=== PATIENT | male | born 1935 | race Caucasian/White ===

== ENCOUNTER 2025-02-10 19:00 | Inpatient (IN) | payer OTHER, SELFPAY ==
[2025-02-10] VITALS (11 sets, daily range): BP systolic 103–130; BP diastolic 63–98; BMI 24.8; BMI 25.9
[2025-02-10 14:01] LABS: % Basophils 0.1 % (0-2); % Eosinophils 2.5 % (0-6); % Immature Granulocytes 0.6 % (0-0.5); % Lymphocytes 9.4 % (20.5-51.1); % Monocytes 9.2 % (1.7-9.3); % Neutrophils 78.2 % (42.2-75.2); Absolute Eosinophils 0.3 10^3/uL (0-0.7); Absolute Immature Granulocytes 0.1 10^3/uL (0-0.05); Absolute Lymphocytes 1.1 10^3/uL (1.2-3.4); Absolute Monocytes 1.1 10^3/uL (0.1-0.6); Absolute Neutrophils 9.1 10^3/uL (1.4-6.5); Hematocrit 48.6 % (39.0-52.0); Hemoglobin 16.1 g/dL (13.0-18.0); Mean Corp Hgb Conc. 33.1 g/dL (33.0-37.0); Mean Corpuscular Hgb 32.2 pg (27.0-31.0); Mean Corpuscular Volume 97.2 fL (80.0-94.0); Nucleated Red Blood Cells % 0 % (-); Platelet Count 147 10^3/uL (130-400); Red Cell Dist. Width 13.9 % (11.5-14.5); White Blood Cell Count 11.7 10^3/uL (4.8-10.8)
[2025-02-10 14:09] LABS: Erythrocyte Sed Rate 3 mm/hour (0-20)
--- NOTE | 2025-02-10 14:18 | ED.GENMED ---
History of Present Illness
<Topher Logan PA-C - Last Filed: 02/10/25 15:57>
General
Chief Complaint: Change in Mental Status
Source: patient and family
Time Seen by Provider: 02/10/25 13:31
History of Present Illness
History of Present Illness:
89-year-old male with past medical history of previous SD, COPD presenting to the emergency department with family who reports that about 30 minutes prior to arrival to the ER patient developed sudden onset left-sided headache/neck pain which
radiated down into the left shoulder area and accompanied with blurred vision with patient describing it as if the vision in front of him was very distorted with the visual symptoms lasting about 15 minutes and then resolving but then starting up
again and lasting for another 15 minutes. At time of my exam patient only notes the left-sided headache which is also now moderately improved, no pain within the shoulder, no chest pain or any other concerns acutely. Family did notice that
yesterday patient started having some left upper extremity tremors which is now in the bilateral lower extremities. Lower extremities unaffected. No fevers, chills, rigors. No history of any neurologic complications. No other concerns presently.
Despite patient having history of acute SD he reports that he is not on any antiplatelet or anticoagulant medications.
Past History
<Topher Logan PA-C - Last Filed: 02/10/25 15:57>
Past History
ED Past Medical History: CAD, COPD and Other (GI BLEED)
ED Past Surgical History: Bowel resection, Cardiac and Orthopedic
Social History
Tobacco: Former smoker
Alcohol: Occasional
Drug: None
Personal:
Living: with family
Review of Systems
<Topher Logan PA-C - Last Filed: 02/10/25 15:57>
Review of Systems
All Other Systems: ROS reviewed and negative except as documented in HPI and ROS
Phy Exam
<Topher Logan PA-C - Last Filed: 02/10/25 15:57>
Physical Exam
Physical Exam:
GENERAL: Alert , in no apparent distress
HEAD: Normocephalic atraumatic
EYE: Clear conjunctiva, pupils equal and reactive, 3 mm bilateral, EOMI, no nystagmus
NECK: Supple, no significant adenopathy., No carotid bruit
ENT: o/p clr, mmm. Tongue midline, no fasciculations
CARDIAC: Regular rate and rhythm .
LUNGS: Clear breath sounds bilaterally, no acute respiratory distress, no wheezes/rales/rhonchi
ABDOMEN: Soft, without focal tenderness, no r/g, no cvat
NEUROLOGICAL: Alert and oriented, no focal neuro deficits, no dysmetria, no dysarthria or aphasia, intermittent upper extremity twitching/tremor noted which is increased with arms extended
SKIN: Warm and dry, skin intact.
MUSCULOSKELETAL: well perfused.
PSYCH: Normal and appropriate interaction.
Scores
<Topher Logan PA-C - Last Filed: 02/10/25 15:57>
Heart Failure Risk
Heart Failure Risk Score: Not Applicable
Heart Score for Chest Pain Patients
STEMI patient?: Not applicable
Withdrawal Assessment of Alcohol
Withdrawal Assessment Completed?: Not applicable
Course
<JULIAN Lucia Last Filed: 02/10/25 15:57>
Orders/Labs/Results
Orders:
Orders
02/10/25 13:30
CT Head & Neck Angio W/wo IV Urgent
Comment:
Reason For Exam: sudden onset headache with neck pain
02/10/25 13:32
Electrocardiogram (*1) Urgent
Reason for Study: TIA/Stroke
EKG- Treatment ONCE
02/10/25 13:52
CRP [C-Reactive Protein] Urgent
Complete Blood Count/With Diff Urgent
Comprehensive Metabolic Panel Urgent
ESR [Erythrocyte Sed Rate] Urgent
Troponin I Urgent
02/10/25 13:58
Lorazepam [Ativan] 0.5 mg IV NOW STA
02/10/25 17:22
Aspirin 325 mg PO NOW STA
Clopidogrel Bisulfate [Plavix] 300 mg PO NOW STA
Abnormal Lab Results
02/10/25
13:52
WBC 11.7 H 10^3/uL
(4.8-10.8)
MCV 97.2 H fL
(80.0-94.0)
MCH 32.2 H pg
(27.0-31.0)
Abs Immat Gran (auto) 0.1 H 10^3/uL
(0-0.05)
Absolute Neuts (auto) 9.1 H 10^3/uL
(1.4-6.5)
Absolute Lymphs (auto) 1.1 L 10^3/uL
(1.2-3.4)
Absolute Monos (auto) 1.1 H 10^3/uL
(0.1-0.6)
Immature Gran % 0.6 H %
(0-0.5)
Neutrophils % 78.2 H %
(42.2-75.2)
Lymphocytes % 9.4 L %
(20.5-51.1)
Glucose 170 H mg/dl
(70-99)
C-Reactive Protein 154.80 H mg/L
(0.0-10.00)
02/10/25 13:52
02/10/25 13:52
Vital Signs
Initial and Last Documented VS:
Initial Vital Signs
Temp Pulse Resp BP Pulse Ox
98.3 F 89 18 123/78 97
02/10/25 13:27 02/10/25 13:27 02/10/25 13:27 02/10/25 13:27 02/10/25 13:27
Last Documented Vital Signs
Temp Pulse Resp BP Pulse Ox
98.3 F 68 26 111/98 98
02/10/25 13:27 02/10/25 17:15 02/10/25 17:15 02/10/25 17:00 02/10/25 14:30
<Jermainekrista Cook Kierra, DO - Last Filed: 02/10/25 15:35>
Orders/Labs/Results
Orders:
Orders
02/10/25 13:30
CT Head & Neck Angio W/wo IV Urgent
Comment:
Reason For Exam: sudden onset headache with neck pain
02/10/25 13:32
Electrocardiogram (*1) Urgent
Reason for Study: TIA/Stroke
EKG- Treatment ONCE
02/10/25 13:52
CRP [C-Reactive Protein] Urgent
Complete Blood Count/With Diff Urgent
Comprehensive Metabolic Panel Urgent
ESR [Erythrocyte Sed Rate] Urgent
Troponin I Urgent
02/10/25 13:58
Lorazepam [Ativan] 0.5 mg IV NOW STA
02/10/25 17:22
Aspirin 325 mg PO NOW STA
Clopidogrel Bisulfate [Plavix] 300 mg PO NOW STA
Abnormal Lab Results
02/10/25
13:52
WBC 11.7 H 10^3/uL
(4.8-10.8)
MCV 97.2 H fL
(80.0-94.0)
MCH 32.2 H pg
(27.0-31.0)
Abs Immat Gran (auto) 0.1 H 10^3/uL
(0-0.05)
Absolute Neuts (auto) 9.1 H 10^3/uL
(1.4-6.5)
Absolute Lymphs (auto) 1.1 L 10^3/uL
(1.2-3.4)
Absolute Monos (auto) 1.1 H 10^3/uL
(0.1-0.6)
Immature Gran % 0.6 H %
(0-0.5)
Neutrophils % 78.2 H %
(42.2-75.2)
Lymphocytes % 9.4 L %
(20.5-51.1)
Glucose 170 H mg/dl
(70-99)
C-Reactive Protein 154.80 H mg/L
(0.0-10.00)
02/10/25 13:52
02/10/25 13:52
Vital Signs
Initial and Last Documented VS:
Initial Vital Signs
Temp Pulse Resp BP Pulse Ox
98.3 F 89 18 123/78 97
02/10/25 13:27 02/10/25 13:27 02/10/25 13:27 02/10/25 13:27 02/10/25 13:27
Last Documented Vital Signs
Temp Pulse Resp BP Pulse Ox
98.3 F 68 26 111/98 98
02/10/25 13:27 02/10/25 17:15 02/10/25 17:15 02/10/25 17:00 02/10/25 14:30
<Antonio Vargas PA-C - Last Filed: 02/10/25 17:24>
Orders/Labs/Results
Orders:
Orders
02/10/25 13:30
CT Head & Neck Angio W/wo IV Urgent
Comment:
Reason For Exam: sudden onset headache with neck pain
02/10/25 13:32
Electrocardiogram (*1) Urgent
Reason for Study: TIA/Stroke
EKG- Treatment ONCE
02/10/25 13:52
CRP [C-Reactive Protein] Urgent
Complete Blood Count/With Diff Urgent
Comprehensive Metabolic Panel Urgent
ESR [Erythrocyte Sed Rate] Urgent
Troponin I Urgent
02/10/25 13:58
Lorazepam [Ativan] 0.5 mg IV NOW STA
02/10/25 17:22
Aspirin 325 mg PO NOW STA
Clopidogrel Bisulfate [Plavix] 300 mg PO NOW STA
Abnormal Lab Results
02/10/25
13:52
WBC 11.7 H 10^3/uL
(4.8-10.8)
MCV 97.2 H fL
(80.0-94.0)
MCH 32.2 H pg
(27.0-31.0)
Abs Immat Gran (auto) 0.1 H 10^3/uL
(0-0.05)
Absolute Neuts (auto) 9.1 H 10^3/uL
(1.4-6.5)
Absolute Lymphs (auto) 1.1 L 10^3/uL
(1.2-3.4)
Absolute Monos (auto) 1.1 H 10^3/uL
(0.1-0.6)
Immature Gran % 0.6 H %
(0-0.5)
Neutrophils % 78.2 H %
(42.2-75.2)
Lymphocytes % 9.4 L %
(20.5-51.1)
Glucose 170 H mg/dl
(70-99)
C-Reactive Protein 154.80 H mg/L
(0.0-10.00)
02/10/25 13:52
02/10/25 13:52
Vital Signs
Initial and Last Documented VS:
Initial Vital Signs
Temp Pulse Resp BP Pulse Ox
98.3 F 89 18 123/78 97
02/10/25 13:27 02/10/25 13:27 02/10/25 13:27 02/10/25 13:27 02/10/25 13:27
Last Documented Vital Signs
Temp Pulse Resp BP Pulse Ox
98.3 F 68 26 111/98 98
03/16/25 13:27 02/10/25 17:15 02/10/25 17:15 02/10/25 17:00 02/10/25 14:30
<Topher Logan PA-C - Last Filed: 02/10/25 15:57>
MDM/Problems Addressed
Differential Diagnosis Includes:
Intracranial bleeding, dissection, aneurysm, atypical migraine, malignancy, atypical ACS presentation
MDM/Problems Addressed:
89-year-old male presenting to the ER for evaluation of sudden onset headache, neck pain and visual disturbance. Symptoms seem to be improving at this time. Patient does have a tremor to the bilateral upper extremities which was noticed yesterday
which continues today. Worse with arms extended. Will check stat CTA of the head and neck and a noncontrast head CT. Ativan ordered for tremors. Disposition pending.
Chronic conditions affecting care: CAD
<Topher Logan PA-C - Last Filed: 02/10/25 15:57>
*Pulse Oximetry
Patient hypoxic: no
*EKG
Heart Rate: 85
Rate: normal
Rhythm: sinus
Vermilion: normal axis
Ischemia: no ischemia
*Technical Manager Interpretation
Rate: normal
Rhythm: sinus
Data Reviewed
Review of Other/Old Records Reveals: Labs
Source: patient, records and family
<Antonio Vargas PA-C - Last Filed: 02/10/25 17:24>
*Critical Care Note
Total Time (30-74mins, 75-104mins- exclusive of procedures): Not Applicable
<Antonio Vargas PA-C - Last Filed: 02/10/25 17:24>
Update Note
Update Note:
02/10/2025 1723 PM: Assumed care of patient from Jono Logan PA-C pending neurology consultation. Discussed case with neurology after consultation, concern at this time for a poncho stroke. Recommends admission for MRI and dual antiplatelets, will
order loading dose of aspirin and Plavix
ED Attending Note
<Topher Logan PA-C - Last Filed: 02/10/25 15:57>
-
Portions of this chart may have been created with voice recognition software.� Occasional wrong word or��sound alike� substitutions may have occurred due to the inherent limitations of voice recognition software.
<Jermaine Lozada DO - Last Filed: 02/10/25 15:35>
ED Attending Note
Patient seen and examined by attending physician: Yes
I performed the substantive portion of visit, reviewed & personally made and approve the management plan that is documented in note by myself or MANDEEP.: Yes
ED Attending Note:
I evaluated the patient at bedside. White count 11.7, chemistries unremarkable except glucose of 170, C-reactive protein is 155
Discharge Plan
Departure
Patient Disposition: Admit
Date of Disposition: 02/10/25
Time of Disposition: 17:23
Admit to: Telemetry
Presentation/result/management discussed w/ accepting MD/DO: Hospitalist
Patient with high blood pressure during this ER visit?: No
Discharge Problem:
Headache, Visual disturbance, Tremor
Prescriptions:
No Action
omeprazole 20 MG capsule,delayed release(DR/EC)
20 mg PO DAILY
Ca-D3-mag zl-kwes-ros-cassandra-bor [Calcium 600-D3 Plus (mag-zinc)] 1 EACH tablet
1 tab PO DAILY
zinc 10 mg Tablet
10 mg PO DAILY
magnesium Tablet
1 tab PO DAILY
Stiolto Respimat 2.5-2.5 mcg/actuation Mist
2 puff INHALATION DAILY
propranolol 20 mg Tablet
20 mg PO BID
propranolol 20 mg Tablet
20 mg PO HS
Interventions
Interventions:
*Risk Screen - Suicide Last Done: 02/10/25 13:29
*General Assessment Last Done: 02/10/25 13:29
*Neglect/Abuse Screening Last Done: 02/10/25 13:29
*ED COVID-19 Vaccine History Last Done: 02/10/25 13:29
ED- Pulmonary Assessment Last Done: 02/10/25 13:54
ED- Neurological Assessment Last Done: 02/10/25 13:57
ED- Cardiac Assessment Last Done: 02/10/25 13:54
Discharge Date and Time
Print Language: MOZAMBICAN
[2025-02-10 14:19] LABS: ALT (SGPT) 22 U/L (0-50); AST (SGOT) 21 U/L (17-59); Albumin 4.4 g/dl (3.5-5.0); Alkaline Phosphatase 68 U/L (38-126); Blood Urea Nitrogen 18 mg/dl (9-20); Calcium 9.1 mg/dl (8.4-10.2); Carbon Dioxide 26 mmol/L (22-30); Chloride 101 mmol/L (98-107); Estimated Creatinine Clearance 54 ml/min; Glucose 170 mg/dl (70-99); Potassium 4.3 mmol/L (3.5-5.1); Sodium 138 mmol/L (135-145); Total Bilirubin 1.3 mg/dl (0.2-1.3); Total Protein 7.1 g/dl (6.3-8.2); eGFR > 60.00
[2025-02-10 14:31] LABS: Troponin I < 0.012 ng/ml
[2025-02-10] MEDS: ATIVAN 0.5 MG IV (15:43)
--- NOTE | 2025-02-10 17:19 | CON.NEURO ---
Addendum entered and electronically signed by Joey Hassan MD 02/10/25 17:39:
NIHSS 3 (eye movement 1, facial droop 1, loss of pin 1) pronator drift no points
Original Note:
Neuro Assessment/Plan
Assessment
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
left trapezius trigger point
Parkinson's disease
Plan
patient within TNK window; spoke with patient symptoms are not disabling, no TNK
Chew ASA 324, start asa 81 daily
Start Lipitor 40
load Plavix 300, start Plavix 75 daily
will need to switch to Pepcid to Protonix (Plavix [id number] interaction)
start Sinemet 25/100 TID for tremor
admit for brain MRI and afib screening
Consultation
Order
Date of Consultation: 02/10/25
Requesting Provider: Topher Logan
Reason for Consult: headache
Subjective/Objective
Subjective Data
Date of Service: February 10, 2025
From ED notes:
89-year-old male with past medical history of previous ID, COPD presenting to the emergency department with family who reports that about 30 minutes prior to arrival to the ER patient developed sudden onset left-sided headache/neck pain which
radiated down into the left shoulder area and accompanied with blurred vision with patient describing it as if the vision in front of him was very distorted with the visual symptoms lasting about 15 minutes and then resolving but then starting up
again and lasting for another 15 minutes. At time of my exam patient only notes the left-sided headache which is also now moderately improved, no pain within the shoulder, no chest pain or any other concerns acutely. Family did notice that
yesterday patient started having some left upper extremity tremors which is now in the bilateral lower extremities. Lower extremities unaffected. No fevers, chills, rigors. No history of any neurologic complications. No other concerns presently.
Despite patient having history of acute ID he reports that he is not on any antiplatelet or anticoagulant medications.
patient reports the above symptoms now resolved. Now having horizontal diplopia; when he looks left the images line up again
Objective Data
Vital Signs
Temp Pulse Resp BP Pulse Ox
36.8 C 68 26 111/98 98
02/10/25 13:27 02/10/25 17:15 02/10/25 17:15 02/10/25 17:00 02/10/25 14:30
Lab Results
02/10/25 13:52
02/10/25 13:52
Sodium 138 mmol/L (135-145) 02/10/25 13:52
Potassium 4.3 mmol/L (3.5-5.1) 02/10/25 13:52
BUN 18 mg/dl (9-20) 02/10/25 13:52
Glucose 170 mg/dl (70-99) H 02/10/25 13:52
Calcium 9.1 mg/dl (8.4-10.2) 02/10/25 13:52
Patient Allergies
No Known Allergies Allergy (Verified 02/10/25 13:29)
Physical Exam
-
AAOx3, speech clear, language intact
VFF, right CN6 palsy, Right facial droop
left pronator drift, left vibratory loss,
right sided loss of pinprick
left trapezius trigger point reproduces the pain
+resting tremor, bradykinesia, cogwheel rigidity
Medications
-
Home Medications
�Medication �Instructions �Recorded
omeprazole 20 mg capsule,delayed 20 mg PO DAILY 05/22/17
release
calcium 600 mg-D3 20 mcg-magnesium 1 tab PO DAILY 11/30/18
50 ej-Rw-wobxjx-riri-boron
tablet (Calcium 600-D3 Plus
(mag-zinc))
magnesium 1 tab PO DAILY 08/30/22
propranolol 20 mg tablet 20 mg PO BID 08/30/22
propranolol 20 mg tablet 20 mg PO HS 08/30/22
tiotropium 2.5 mcg-olodaterol 2.5 2 puff inhalation DAILY 08/30/22
mcg/actuation mist for inhalation
(Stiolto Respimat)
zinc 10 mg tablet 10 mg PO DAILY 08/30/22
[2025-02-10] MEDS: PLAVIX 300 MG PO (17:40)
[2025-02-10] MEDS: LOW STRENGTH ASPIRIN 324 MG PO (17:41)
--- NOTE | 2025-02-10 18:39 | HPS.HSE ---
Family Physician
-
Family Physician: GERRY Guerra
Chief Complaint
-
Concern for stroke
History of Present Illness
Mr. 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
(previously on propranolol), and former smoker (approximately 50 pack years, quit in his 60s) who presented from home after sudden onset left head and neck pain with associated blurry vision. His head and neck pain improved but he still having
vision disturbances which she describes as double vision (horizontal diplopia). CT angiography of his head and neck showed bilateral atherosclerotic disease, 58% stenosis on the right and 41% stenosis on the left. No evidence of intracranial large
vessel occlusion or high-grade stenosis. He was within the window for TNK but did not feel the benefits were worth the risks considering his symptoms were not disabling, and so did not receive TNK. He was loaded with aspirin and Plavix and started
on high intensity statin therapy. Labs were remarkable only for mild leukocytosis of 11.7. He remained afebrile, normotensive, and was breathing comfortably and saturating appropriately on room air. He has been admitted for further evaluation and
management of suspected stroke.
Medical History
Past Medical History
Past Medical History: Reports CAD (NM PCI x 1) and COPD
Additional Past Medical History:
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
Past Surgical History: Reports Bowel Resection (Due to perforated diverticulitis) and Orthopedic (Left hip and left knee replacement)
Social History
Tobacco: Former Smoker (Approximately 78-xfpz-uptv smoking history, quit in his 60s)
Family History
Family History: Not pertinent
Allergies / Home Medications
Allergies reflects when Allergies were last updated in [email or web address].
Home Medications with original date entered in [email or web address]
Allergy/Medication List:
Allergies
Allergy/AdvReac Type Severity Reaction Status Date / Time
No Known Allergies Allergy Verified 02/10/25 13:29
Home Medications
omeprazole 20 mg capsule,delayed release 20 mg PO DAILY 05/22/17
propranolol 20 mg tablet 20 mg PO DAILY 08/30/22
propranolol 20 mg tablet 40 mg PO HS 08/30/22
acetaminophen 500 mg tablet (Tylenol Extra Strength) 1,000 mg PO Q6HPRN PRN mild pain 02/10/25
calcium 600 mg (as carbonate)-vitamin D3 5 mcg (200 unit) tablet 1 tab PO DAILY 02/10/25
umeclidinium 62.5 mcg-vilanterol 25 mcg/actuation powdr for inhalation (Anoro Ellipta) 1 inh inhalation R DAILY 02/10/25
zinc sulfate 50 mg zinc (220 mg) tablet 50 mg PO DAILY 02/10/25
Review of Systems
-
History Source: Patient
A 12 point ROS was completed and negative except as noted: Yes
EENT: Reports Other (Left neck pain)
Neurological: Reports Other (Blurry vision)
Physical Exam
Vital Signs
Vital Signs
Temp Pulse Resp BP Pulse Ox
98.3 F 67 15 127/75 98
02/10/25 13:27 02/10/25 18:00 02/10/25 18:00 02/10/25 18:00 02/10/25 14:30
Physical Exam
General: No Apparent Distress
Laboratory Results
-
02/10/25 13:52
02/10/25 13:52
Laboratory Results
Total Bilirubin 1.3 mg/dl (0.2-1.3) 02/10/25 13:52
AST 21 U/L (17-59) 02/10/25 13:52
ALT 22 U/L (0-50) 02/10/25 13:52
Alkaline Phosphatase 68 U/L (38-126) 02/10/25 13:52
Troponin I < 0.012 ng/ml 02/10/25 13:52
Impression/Plan
-
Gen-AAOx3, NAD
HEENT-NC, AT, anicteric, clear oral mm
Neck-supple
CV-reg, no M, +S1/S2
Lungs-clear B/L
Abd-soft, NT, ND
Musculoskeletal-no edema, no deformity
Skin-warm and dry
Neuro-facial droop, upper and lower motor strength intact bilaterally, horizontal diplopia
Psych-calm, cooperative
Mr. 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
(previously on propranolol), and former smoker (approximately 50 pack years, quit in his 60s) who presented from home after sudden onset left head and neck pain with associated blurry vision. His head and neck pain improved but he still having
vision disturbances which she describes as double vision (horizontal diplopia). CT angiography of his head and neck showed bilateral atherosclerotic disease, 58% stenosis on the right and 41% stenosis on the left. No evidence of intracranial large
vessel occlusion or high-grade stenosis. He was within the window for TNK but did not feel the benefits were worth the risks considering his symptoms were not disabling, and so did not receive TNK. He was loaded with aspirin and Plavix and started
on high intensity statin therapy. Labs were remarkable only for mild leukocytosis of 11.7. He remained afebrile, normotensive, and was breathing comfortably and saturating appropriately on room air. He has been admitted for further evaluation and
management of suspected stroke.
CVA:
-Suspect acute stroke based on symptoms, no overt evidence of stroke on CT angiography
-MRI brain pending
-Loaded with aspirin and Plavix, continue DAPT and high intensity statin
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
-Telemetry monitoring for A-fib assessment
-Follow-up lipid panel and hemoglobin A1c
-Permissive hypertension for now
-Appreciate neurology recommendations
-Low-cholesterol diet if passes bedside swallow
Tremor:
-Had previously been prescribed propranolol by an outpatient neurologist but reports no longer taking it due to ever-increasing dosages and has not recently followed up with a neurologist
-Neurology here suspect Parkinson's disease, recommend starting Sinemet 25/100 3 times daily
Left head and neck pain:
-Tylenol as needed
-Diclofenac gel
COPD:
-Stable, not on oxygen at baseline, currently comfortable on room air
-Continue home maintenance inhalers
CAD:
-Stable
-Daily aspirin and statin
CODE STATUS: DNR
--- NOTE | 2025-02-10 21:30 | PTCARENOTE ---
Rec'd from ED awake & alert. Ambulated w/steady gait from doorway to bed; denied any dizziness. States no visual disturbance @ this time. Pt instructed to call for assist before getting OOB if any dizziness or visual disturbance. Verbalizes
understanding of same.
[2025-02-10] MEDS: DICLOFENAC 1% TOPICAL GEL 2 GRAM TOPICAL (22:42)
[2025-02-10] MEDS: LIPITOR 40 MG PO (22:43)
[2025-02-10] MEDS: SINEMET 25-100 1 TABLET PO (22:44)
[2025-02-11] VITALS (8 sets, daily range): BP systolic 101–138; BP diastolic 63–84; PULSE 70–93; O2SAT 94
--- NOTE | 2025-02-11 05:18 | W.PN.HOSP.TC ---
Today's Communication/Plan
-
dc asa plavix statin as per neuro
monitor orthostatic vitals
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
likely tomorrow discharge tomorrow if remains stable/continues to improve
Assessment / Plan
Assessment / Plan
Physical Exam
Gen-No acute distress appears comfortable at this time
HEENT-NC, AT, anicteric, clear oral mm hard of hearing
Neck-supple, limited active range of motion
CV-reg, no M, +S1/S2
Lungs-clear B/L
Abd-soft, NT, ND
Musculoskeletal-no edema, no deformity
Skin-warm and dry
Neuro-AOx3 conversant coherent tremors noted worse with movement
Psych-calm, cooperative
89M hx Polio CAD PCI COPD hx diverticulitis perforation resection tremors here for evaluation possible CVA with intermittent neck pain diplopia vision disturbances.
CVA ruled out
Diplopia resolved (reports intermittent occurrence, worse towards the end of the day)
-no overt evidence of stroke on CT angiography
-MRI brain appreciated no acute infarct
-Neuro eval appreciated no need for antiplatelet or statin
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
-lipid panel appreciated wnl and A1c 6.1 prediabetic
-outpt ophthalmology eval
-monitor orthostatic vitals
Tremor:
-Had previously been prescribed propranolol by an outpatient neurologist but reports no longer taking it due to ever-increasing dosages and has not recently followed up with a neurologist
-Neurology here suspect Parkinson's disease, recommended starting Sinemet 25/100 3 times daily, cont
Left head and neck pain:
-Tylenol as needed
-Diclofenac gel
COPD:
-Stable, not on oxygen at baseline, currently comfortable on room air
-Continue home maintenance inhalers
CAD:
-Stable
-Daily aspirin and statin
CODE STATUS: DNR
discussed with patient, patient's daughter Lu and son-in-law.
I spent a total of 45 minutes with the patient or on the floor. More than 50% of this time involved counseling and coordination of care.
Anticipated Discharge: Within 24 hours
Subjective/Interval History
-
Date of Service: February 11, 2025
No acute distress reports overall improvement in symptoms. Resolution diplopia, improvement in neck pain and tremors.
Objective Data
-
Labs:
Laboratory Results
02/11/25
06:00
WBC Pending
Hgb Pending
Hct Pending
Plt Count Pending
Sodium Pending
Potassium Pending
Chloride Pending
Carbon Dioxide Pending
BUN Pending
Creatinine Pending
Glucose Pending
Calcium Pending
Vital Signs:
Vital Signs
Temp Pulse Resp BP Pulse Ox
98.1 F 73 18 113/72 93
02/11/25 03:52 02/11/25 03:52 02/11/25 03:52 02/11/25 03:52 02/11/25 03:52
--- NOTE | 2025-02-11 06:20 | PTCARENOTE ---
No change in assessment since admission to floor. Sometimes states he sees double; at other times denies visual disturbance.
[2025-02-11] MEDS: SPIRIVA RESPIMAT 2.5 MCG 2 PUFF INH (07:14)
[2025-02-11] MEDS: STRIVERDI RESPIMAT 2 PUFF INH (07:14)
[2025-02-11 08:31] LABS: Hematocrit 43.3 % (39.0-52.0); Hemoglobin 14.6 g/dL (13.0-18.0); Mean Corp Hgb Conc. 33.7 g/dL (33.0-37.0); Mean Corpuscular Hgb 32.7 pg (27.0-31.0); Mean Corpuscular Volume 96.9 fL (80.0-94.0); Mean Platelet Volume 9.1 fL (7.4-10.4); Platelet Count 147 10^3/uL (130-400); Red Blood Cell Count 4.47 10^6/uL (4.70-6.10); White Blood Cell Count 10.7 10^3/uL (4.8-10.8)
--- NOTE | 2025-02-11 08:40 | PTOTSP ---
Speech Language Pathology
Pt seen for cognitive-linguistic and speech evaluations. Slight R facial droop noted with lingual deviation to the R. Mild dysarthria noted with pt 100% intelligible in known contexts, 95% in unknown contexts. Cognitive-linguistic status
evaluated via the Db Cognitive Assessment (MOCA), version 7.3. Pt with an overall score of 18/30 where normal range is 26-30.
Pt also seen for clinical bedside swallow evaluation. P.O. trials of regular solids and thin liquids provided. Adequate mastication, bolus formation, and A-P transit noted with no oral residue. No overt signs of aspiration. Also seen for med
pass with meds with water (all at once) with no overt difficulty.
Recommend:
(1) Regular solids/thin liquids
(2) Will consider VSE as needed based on tolerance and MRI results
(3) General aspiration precautions
(4) Meds as tolerated
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
[2025-02-11] MEDS: DICLOFENAC 1% TOPICAL GEL 2 GRAM TOPICAL ×3 (08:53→17:11)
[2025-02-11] MEDS: PROTONIX 20 MG PO (08:54)
[2025-02-11] MEDS: SINEMET 25-100 1 TABLET PO ×3 (08:54→21:18)
[2025-02-11] MEDS: ASPIR LOW (ENTERIC COATED) 81 MG PO (08:54)
[2025-02-11] MEDS: OSCAL 500 + D 500 MG PO (08:54)
[2025-02-11] MEDS: PLAVIX 75 MG PO (08:54)
[2025-02-11 08:59] LABS: Blood Urea Nitrogen 18 mg/dl (9-20); Calcium 8.7 mg/dl (8.4-10.2); Carbon Dioxide 25 mmol/L (22-30); Chloride 105 mmol/L (98-107); Estimated Creatinine Clearance 54 ml/min; Glucose 97 mg/dl (70-99); HDL Cholesterol 45 mg/dl; LDL Cholesterol, Calculated 76 mg/dl; Magnesium 2.2 mg/dl (1.6-2.3); Potassium 4.2 mmol/L (3.5-5.1); Sodium 136 mmol/L (135-145); Total Cholesterol 137 mg/dl (50-199); Triglyceride 82 mg/dl (10-149); Very Low Density Lipoprotein 16 mg/dl (0-30); eGFR > 60.00
--- NOTE | 2025-02-11 10:29 | PTOTSP ---
Pt is able to get OOB and ambulate in hallway without an assistive device. Denies double vision at this time. No acute PT needs. Will sign off.
--- NOTE | 2025-02-11 10:40 | PTOTSP ---
pt currently requires no assistance to complete simple ADLs, functional transfers, ambulation. pt does demonstrate resting tremor; reports he has had it for ~6 years. pt also reports double vision, though is not affecting functional ability at this
time. no acute OT needs identified at this time, will sign off.
[2025-02-11 10:42] LABS: Glycohemoglobin (HgbA1c) 6.1 % (4.0-5.6)
[2025-02-11 13:25] LABS: TSH Reflex To Free T4 3.37 uIU/ml (0.47-4.68)
[2025-02-11 13:29] LABS: Ferritin 90.6 ng/ml (17.9-464.0)
[2025-02-11 14:01] LABS: Folate 10.3 ng/ml (2.76-20); Vitamin B12 > 1000 pg/ml (239-931)
--- NOTE | 2025-02-11 14:05 | W.PN.NEURO.1 ---
Today's Communication / Plan
-
May stop asa 81 daily
May discontinue atorvastatin as there is no evidence of acute ischemic stroke or significant chronic ischemic lesions
May discontinue clopidogrel
May continue carbidopa/levodopa 25/100 TID for tremor, for now, will need additional testing as outpatient including ELIZABETH scan
Check orthostatic blood pressures
Neuro Assessment/Plan
Assessment
Acute onset left-sided head pain and neck pain radiating into the left shoulder associated with blurred vision. Patient has been having routine diplopia typically at night and not during the day for multiple days.
Patient also has been experiencing significant tremors of longstanding nature for which he was being evaluated by an outpatient neurologist
Plan
May stop asa 81 daily
May discontinue atorvastatin as there is no evidence of acute ischemic stroke or significant chronic ischemic lesions
May discontinue clopidogrel
May continue carbidopa/levodopa 25/100 TID for tremor, for now, will need additional testing as outpatient including ELIZABETH scan
Check orthostatic blood pressures
Will follow peripherally
Subjective/Objective
Subjective Data
Date of Service: February 11, 2025
Patient feels improved
Objective Data
Vital Signs
Temp Pulse Resp BP Pulse Ox
36.5 C 83 16 116/65 95
02/11/25 11:45 02/11/25 11:45 02/11/25 11:45 02/11/25 11:45 02/11/25 11:45
Lab Results
02/11/25 07:43
02/11/25 07:43
Sodium 136 mmol/L (135-145) 02/11/25 07:43
Potassium 4.2 mmol/L (3.5-5.1) 02/11/25 07:43
BUN 18 mg/dl (9-20) 02/11/25 07:43
Glucose 97 mg/dl (70-99) 02/11/25 07:43
Calcium 8.7 mg/dl (8.4-10.2) 02/11/25 07:43
Phosphorus 3.0 mg/dl (2.5-4.5) 02/11/25 07:43
LDL Cholesterol, Calc 76 mg/dl 02/11/25 07:43
Vitamin B12 > 1000 pg/ml (239-931) H 02/11/25 07:43
Patient Allergies
No Known Allergies Allergy (Verified 02/10/25 13:29)
Review of Systems
-
History Source: Patient
All other systems: Reviewed and negative
EENT: Swallowing Difficulty and Other (Diplopia)
Neuro: Negative Dizzy or Headache
Physical Exam
-
General: No Apparent Distress and Appears Stated Age
Eyes: Round OU, [place] Conjunctivae and No Ptosis
HEENT: Anicteric and Moist Mucous Membranes
Neck: Full Range of Motion
Respiratory: No Dyspnea
Cardiac: No JVD
GI: Non-distended
Skin: Unremarkable
Extremities: No Clubbing, No Cyanosis and No Edema
Psych: Intact Judgement/Insight
Extended Neurological Exam
Mood & Affect: Mood Unremarkable and Affect Unremarkable
Attention Span & Concentration: Awake, Alert, Interactive and No Difficulty with 2 Step Request
Memory: Unremarkable
Tremor: Head Tremor Absent, Distal, Amplitude (Low to medium), Rare and With Action
Speech: Quantity Unremarkable and Hoarse; Negative Quality Unremarkable
Cranial Nerve II: Left Eye: Pupillary Size Unremarkable and Visual Corea Grossly Intact
Cranial Nerve II: Right Eye: Pupillary Size Unremarkable and Visual Corea Grossly Intact
Cranial Nerves III, IV, : Extraocular Movement: Grossly Intact
Cranial Nerve VII: Facial Symmetry: Normal Facial Symmetry
Cranial Nerve VIII: Hearing: Unremarkable Hearing to Normal Conversational Volume
Cranial Nerve XI: Shoulder Shrug: Unremarkable
Muscle Bulk & Tone: Bulk Unremarkable and Tone Unremarkable
Pronator Drift: No Drift in Upper Extremities
Touch Sensation: Unremarkable
Coordination: [id number] Testing Unremarkable
Past History
Past History
ED Past Medical History: CAD, COPD and Other (GI BLEED)
ED Past Surgical History: Bowel resection, Cardiac and Orthopedic
Social History
Tobacco: Former smoker
Alcohol: Occasional
Drug: None
Personal:
Living: with family
Medications
-
Medications:
Generic Name Dose Route Start Last Admin
Trade Name Freq PRN Reason Stop Dose Admin
Acetaminophen 650 mg 02/10/25 18:32
Acetaminophen 650 Mg Rectal Suppository RECTAL 03/10/25 18:31
Q4HPRN PRN
SIFUENTES, mild pain, or temp >100.4F
Acetaminophen 1,000 mg 02/10/25 19:04
Acetaminophen 500 Mg Tablet PO 03/10/25 19:03
Q6HPRN PRN
mild pain
Aspirin 81 mg 02/11/25 08:00 02/11/25 08:54
Aspirin 81 Mg (Enteric Coated) Tablet PO 03/11/25 07:59 81 mg
DAILY NOREEN Administration
Atorvastatin Calcium 40 mg 02/10/25 18:00 02/10/25 22:43
Atorvastatin (Lipitor) 40 Mg Tablet PO 03/10/25 17:59 40 mg
QPM NOREEN Administration
Calcium/Vitamin D 500 mg 02/11/25 08:00 02/11/25 08:54
Calcium Carbonate 500 Mg/Vitamin D 5 Mcg (200 Units) Tablet PO 03/11/25 07:59 500 mg
DAILY NOREEN Administration
Carbidopa/Levodopa 1 tablet 02/10/25 22:00 02/11/25 08:54
Carbidopa (25 Mg)/Levodopa (100 Mg) Regular Release Tablet PO 03/10/25 21:59 1 tablet
TID NOREEN Administration
Clopidogrel Bisulfate 75 mg 02/11/25 08:00 02/11/25 08:54
Clopidogrel 75 Mg Tablet PO 03/03/25 08:01 75 mg
DAILY NOREEN Administration
Diclofenac Sodium 0 gram 02/10/25 22:00 02/11/25 12:28
Diclofenac 1% Topical Gel 100 Gram Tube TOPICAL 03/10/25 21:59 100 gram
QID NOREEN Administration
Protocol
Olodaterol 2 puff 02/11/25 08:00 02/11/25 07:14
Olodaterol (Striverdi Respimat) 2.5 Mcg Inhaler INH 03/11/25 07:59 2 puff
R DAILY NOREEN Administration
Pantoprazole Sodium 20 mg 02/11/25 08:00 02/11/25 08:54
Pantoprazole 20 Mg Delayed Release Tablet PO 03/11/25 07:59 20 mg
DAILY NOREEN Administration
Sodium Chloride 0 flush 02/10/25 22:00
Sodium Chloride 0.9% (Flush) Syringe IV 03/10/25 21:59
PER PROTOCOL NOREEN
Tiotropium [place] 2 puff 02/11/25 08:00 02/11/25 07:14
Tiotropium (Spiriva Respimat) 2.5 Mcg Inhaler INH 03/11/25 07:59 2 puff
R DAILY NOREEN Administration
--- NOTE | 2025-02-11 15:42 | CM ---
Alert awake oriented patient who lives with his dgt Guerita who lives in a 1 story home with 3 step to enter.He is independent in driving and in all activities of daily living.He was offered VN he declined need.No Adaptive devices used.
No VN hx / No SNF history
Pharmacy [facility]
PCP DR Balderas
PLAN Home Declined VN
[2025-02-11] MEDS: DICLOFENAC 1% TOPICAL GEL 100 GRAM TOPICAL (21:18)
[2025-02-12 03:35] VITALS: BP 124/73
[2025-02-12 07:00] VITALS: BP 140/78
[2025-02-12] MEDS: SPIRIVA RESPIMAT 2.5 MCG 2 PUFF INH (07:13)
[2025-02-12] MEDS: STRIVERDI RESPIMAT 2 PUFF INH (07:13)
--- NOTE | 2025-02-12 07:29 | W.PN.HOSP.TC ---
Today's Communication/Plan
-
discharge
Assessment / Plan
Assessment / Plan
Physical Exam
Gen-No acute distress appears comfortable at this time
HEENT-NC, AT, anicteric, clear oral mm hard of hearing
Neck-supple, limited active range of motion
CV-reg, no M, +S1/S2
Lungs-clear B/L
Abd-soft, NT, ND
Musculoskeletal-no edema, no deformity
Skin-warm and dry
Neuro-AOx3 conversant coherent resting tremors noted worse with movement
Psych-calm, cooperative
89M hx Polio CAD PCI COPD hx diverticulitis perforation resection tremors here for evaluation possible CVA with intermittent neck pain diplopia vision disturbances.
CVA ruled out
Diplopia resolved (reports intermittent occurrence, worse towards the end of the day)
-no overt evidence of stroke on CT angiography
-MRI brain appreciated no acute infarct
-Neuro eval appreciated no need for antiplatelet or statin
-PT/OT and RUBBER WASHER appreciated no needs
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
-lipid panel appreciated wnl and A1c 6.1 prediabetic
-outpt ophthalmology eval
-monitor orthostatic vitals
Tremor:
-Had previously been prescribed propranolol by an outpatient neurologist but reports no longer taking it due to ever-increasing dosages and has not recently followed up with a neurologist
-Neurology here suspect Parkinson's disease, recommended starting Sinemet 25/100 3 times daily, cont, tremors since improved.
Left head and neck pain:
-Tylenol as needed
-Diclofenac gel
COPD:
-Stable, not on oxygen at baseline, currently comfortable on room air
-Continue home maintenance inhalers
CAD:
-Stable
-Daily aspirin and statin
CODE STATUS: DNR
Medically stable for discharge home with outpatient follow up recommendations.
Total Time Preparing Discharge ____40___ minutes including examination of the patient, summary of the hospital stay, instructions for continuing care to all relevant caregivers; and preparation of discharge records, prescriptions, and referral
forms if necessary.
Anticipated Discharge: Today
Subjective/Interval History
-
Date of Service: February 12, 2025
Reports feeling well. Tremors significantly improved. No new episodes diplopia. Denies new acute issues. Eager to go home.
Objective Data
-
Vital Signs:
Vital Signs
Temp Pulse Resp BP Pulse Ox
98.2 F 67 16 124/73 95
02/12/25 03:35 02/12/25 07:16 02/12/25 07:16 02/12/25 03:35 02/12/25 07:16
I&O
02/11/25 02/12/25 02/13/25
06:59 06:59 06:59
Intake Total 480 / 480
Balance 480 / 480
[2025-02-12] MEDS: PROTONIX 20 MG PO (09:03)
[2025-02-12] MEDS: SINEMET 25-100 1 TABLET PO (09:03)
[2025-02-12] MEDS: OSCAL 500 + D 500 MG PO (09:03)
[2025-02-12] MEDS: DICLOFENAC 1% TOPICAL GEL 100 GRAM TOPICAL (09:04)
[2025-02-12 11:00] VITALS: BP 128/74
[2025-02-12 11:05] VITALS: BP 103/71; BP 122/76; BP 128/74; PULSE 83; PULSE 88; PULSE 98
[2025-02-12] MEDS: DICLOFENAC 1% TOPICAL GEL 2 GRAM TOPICAL (12:59)
--- NOTE | 2025-02-12 14:15 | W.DCSUMMARY ---
Discharge Summary
Discharge Data
Date of Admission: 02/10/25
Date of Discharge: 02/12/25
-
Pending Results: Yes
Additional Pending Results:
acetylcholine receptor ab's results to be followed with neurology
Discharge Plan
-
Patient Disposition: Home (Routine Discharge)
Discharge Diagnosis/Procedures: tremors, suspected Parkinson, improved with Sinemet
Diplopia unclear etiology since resolved
Severe Arthritis Neck
Stroke Ruled Out
No significant Orthostatic Hypotension noted during stay
Prediabetes, HgBA1c 6.1
Condition: Fair
Diet: Regular
Activity: As tolerated
Driving Restrictions: Not until seen by your Dr
Bathing Restrictions: None
Blood Work: Call neurology for results of your test for possible myasthenia gravis (acetylcholine receptor binding antibodies) in 1 week of discharge- if no one has called with results by then.
Activity Restrictions/Additional Instructions:
Follow up with primary care provider and Ophthalmology in 1 week of discharge. Follow up with Neurology in 2-4 weeks of discharge.
Sinemet has been prescribed in place of propranolol for tremors- suspected Parkinson.
Diclofenac gel prescribed as needed for arthritic neck pain.
Please take medications as prescribed/recommended and follow up with primary care provider and/or other healthcare provider involved in your care for refills and/or further adjustment to your medication regimen as necessary.
Referrals:
Jacob Silverman MD [Active] - in two to four weeks
Kacie Balderas CRNP [Family Provider] - in one week
Prescriptions:
New
carbidopa-levodopa 25-100 mg Tablet
1 tab PO TID Qty: 90 0RF
diclofenac sodium 1 % Gel
2 g topical QID PRN (Reason: back of neck pain/arthritis) Qty: 100 0RF
Continued
omeprazole 20 MG capsule,delayed release(DR/EC)
20 mg PO DAILY
calcium carbonate-vitamin D3 600 mg-5 mcg (200 unit) Tablet
1 tab PO DAILY
acetaminophen [Tylenol Extra Strength] 500 mg Tablet
1,000 mg PO Q6HPRN PRN (Reason: mild pain)
zinc sulfate 50 mg zinc (220 mg) Tablet
50 mg PO DAILY
Anoro Ellipta 62.5-25 mcg/actuation Blister With Device
1 inh INHALATION R DAILY
Discontinued
propranolol 20 mg Tablet
20 mg PO DAILY
propranolol 20 mg Tablet
40 mg PO HS
Discharge Orders:
Discharge Patient (As Directed); Ordered 02/12/25
Ordered By: Jewel Young
Discharge Date and Time
Print Language: SWEDISH
--- NOTE | 2025-02-12 15:18 | CM ---
CM reviewed chart and noted dc order
No dc needs noted
== END 2025-02-12 15:14 | disposition home or self-care (01) | DRG 57 ==
LOC: 4 EAST ACU 19:00
PROVIDERS: Physician Assistant Medical; Psychiatry & Neurology Neurology; ADMITTING PHYSICIAN Internal Medicine; ATTENDING PHYSICIAN Internal Medicine; CONSULT PHYSICIAN Psychiatry & Neurology Clinical Neurophysiology; EMERGENCY PHYSICIAN Emergency Medicine; FAMILY PHYSICIAN Nurse Practitioner
DX: G20.A1 Parkinson's disease without dyskinesia, without mention of fluctuations (principal); R41.82 Altered mental status, unspecified; H53.2 Diplopia; M54.2 Cervicalgia; J44.9 Chronic obstructive pulmonary disease, unspecified; R51.9 Headache, unspecified; I25.10 Atherosclerotic heart disease of native coronary artery without angina pectoris; R73.03 Prediabetes; M19.90 Unspecified osteoarthritis, unspecified site; R29.810 Facial weakness; R53.1 Weakness; Z96.652 Presence of left artificial knee joint; Z96.642 Presence of left artificial hip joint; Z66 Do not resuscitate; I25.2 Old myocardial infarction; Z98.61 Coronary angioplasty status; Z86.12 Personal history of poliomyelitis; Z87.891 Personal history of nicotine dependence; Z87.19 Personal history of other diseases of the digestive system; Z79.82 Long term (current) use of aspirin
CPT/HCPCS: 70496; 70498; 70551; 80048; 80053; 80061; 82607; 82728; 82746; 83036; 83735; 84100; 84443; 84484; 85025; 85027; 85652; 86041; 86140; 92523; 92610; 93005; 94640; 96374; 97162; 97167; 99285; Q9967

== ENCOUNTER → 2025-03-04 10:23 | Outpatient (REF) | payer OTHER, SELFPAY | LOC: HWRAD 10:23 | PROVIDERS: ATTENDING PHYSICIAN Nurse Practitioner | DX: I65.23 Occlusion and stenosis of bilateral carotid arteries (principal) | CPT/HCPCS: 93880 ==

== ENCOUNTER 2025-04-25 15:51 | Outpatient (RCR) | payer OTHER, SELFPAY | END 2025-04-25 23:59 | disposition home or self-care (01) | LOC: RST 15:51 | PROVIDERS: ATTENDING PHYSICIAN Psychiatry & Neurology Neurology; FAMILY PHYSICIAN Nurse Practitioner | DX: R25.1 Tremor, unspecified (principal); R26.2 Difficulty in walking, not elsewhere classified; R26.89 Other abnormalities of gait and mobility; M54.2 Cervicalgia; H53.2 Diplopia; G31.84 Mild cognitive impairment of uncertain or unknown etiology; R41.841 Cognitive communication deficit; Z73.6 Limitation of activities due to disability | CPT/HCPCS: 96125; 97110; 97112; 97129; 97130; 97163; 97167; 97530; 97535 ==

== ENCOUNTER 2025-05-27 15:16 | Outpatient (RCR) | payer OTHER, SELFPAY | END 2025-05-27 23:59 | disposition home or self-care (01) | LOC: RST 15:16 | PROVIDERS: ATTENDING PHYSICIAN Psychiatry & Neurology Neurology; FAMILY PHYSICIAN Nurse Practitioner | DX: G31.84 Mild cognitive impairment of uncertain or unknown etiology (principal); R25.1 Tremor, unspecified; Z73.6 Limitation of activities due to disability; R26.2 Difficulty in walking, not elsewhere classified; R26.89 Other abnormalities of gait and mobility; R41.841 Cognitive communication deficit; M54.2 Cervicalgia; H53.2 Diplopia | CPT/HCPCS: 97110; 97112; 97129; 97130; 97530; 97535 ==

== ENCOUNTER 2025-06-25 07:10 | Outpatient (RCR) | payer OTHER, SELFPAY | END 2025-06-25 23:59 | disposition home or self-care (01) | LOC: RST 07:10 | PROVIDERS: ATTENDING PHYSICIAN Psychiatry & Neurology Neurology; FAMILY PHYSICIAN Nurse Practitioner | DX: G31.84 Mild cognitive impairment of uncertain or unknown etiology (principal); Z73.6 Limitation of activities due to disability; R25.1 Tremor, unspecified; R26.2 Difficulty in walking, not elsewhere classified; R26.89 Other abnormalities of gait and mobility; M54.2 Cervicalgia; H53.2 Diplopia | CPT/HCPCS: 97110; 97112; 97129; 97130; 97530; 97535 ==

== ENCOUNTER 2025-07-22 09:22 | Outpatient (RCR) | payer OTHER, SELFPAY | END 2025-07-22 23:59 | disposition home or self-care (01) | LOC: RST 09:22 | PROVIDERS: ATTENDING PHYSICIAN Psychiatry & Neurology Neurology; FAMILY PHYSICIAN Nurse Practitioner | DX: G31.84 Mild cognitive impairment of uncertain or unknown etiology; Z73.6 Limitation of activities due to disability; R25.1 Tremor, unspecified; R26.2 Difficulty in walking, not elsewhere classified; R26.89 Other abnormalities of gait and mobility; M54.2 Cervicalgia; H53.2 Diplopia | CPT/HCPCS: 97110; 97112; 97129; 97130; 97530; 97537 ==

== ENCOUNTER 2025-08-20 14:14 | Outpatient (RCR) | payer OTHER, SELFPAY | END 2025-08-20 23:59 | disposition home or self-care (01) | LOC: RST 14:14 | PROVIDERS: ATTENDING PHYSICIAN Psychiatry & Neurology Neurology; FAMILY PHYSICIAN Nurse Practitioner | DX: R25.1 Tremor, unspecified (principal); G31.84 Mild cognitive impairment of uncertain or unknown etiology; Z73.6 Limitation of activities due to disability; R26.2 Difficulty in walking, not elsewhere classified; R26.89 Other abnormalities of gait and mobility; M54.2 Cervicalgia; H53.2 Diplopia | CPT/HCPCS: 97129; 97130; 97530; 97537 ==

== ENCOUNTER 2025-09-10 09:30 | Outpatient (RCR) | payer OTHER, SELFPAY | END 2025-09-11 06:59 | disposition home or self-care (01) | LOC: RST 09:30 | PROVIDERS: ATTENDING PHYSICIAN Psychiatry & Neurology Neurology; FAMILY PHYSICIAN Nurse Practitioner | DX: G31.84 Mild cognitive impairment of uncertain or unknown etiology (principal); R25.1 Tremor, unspecified; Z73.6 Limitation of activities due to disability; R26.2 Difficulty in walking, not elsewhere classified; R26.89 Other abnormalities of gait and mobility; M54.2 Cervicalgia; H53.2 Diplopia; R41.841 Cognitive communication deficit | CPT/HCPCS: 97129; 97130; 97530; 97537 ==